=== PATIENT | female | born 1950 | race Caucasian/White ===

== ENCOUNTER 2018-11-01 05:37 | Day surgery (SDC) | payer OTHER ==
[~2018-11-01] VITALS: Ht 167.6 cm; Wt 114.1 kg
[2018-11-01 05:30] VITALS: BP 117/63; PULSE 61; RESP 16; Ht 167.6 cm; Wt 114.1 kg
--- NOTE | 2018-11-01 07:02 | PREAC ---
Date/Time of Note Date/Time of Note DATE: 11/01/18 TIME: 06:59 Anesthesia Eval and Record Evaluation Time Pre-Procedure Interview DATE: 11/01/18 TIME: 06:59 Age 68 Sex female NPO: 8 hrs Preoperative diagnosis A-Fibrillation Planned procedure ABBY, Cardioversion Past Medical History Past Medical History: Includes Cardio: Arrythmia (A-fib) Pulm: Sleep Apnea (uses C-PAP at home) GI: Obesity Surgery & Anesthesia Issues No known issue Meds Anticoagulation: No Beta Bebo within 24 hr: No Reason Beta Bebo not given: Pt. not on B-Bebo Meds reviewed: Yes Allergies Allergies Reviewed: Yes Labs/Studies Labs Reviewed: Reviewed by anesthesiologist Result Diagram: 11/01/18 0620 Laboratory Tests 11/01/18 06:20 test: N/A Studies: ECG (Afib, RBBB), CXR (n/a) Pre-procedure Exam Last vitals Vital Signs Date Temp Pulse Resp B/P (MAP) Pulse Ox O2 O2 Flow FiO2 Time Delivery Rate 11/01/18 97.8 61 16 117/63 91 Room Air 05:30 (81) Airway: Adequate mouth opening, Adequate thyromental dist Mallampati: Mallampati II Teeth: Normal Lung: Normal Heart: Normal ASA Physical Status ASA physical status: 3 Emergency: None Planned Anesthetic General/MAC: MAC Planned Pain Management Parenteral pain med Pre-operative Attestations Prior to commencing anesthesia and surgery, the patient was re-evaluated, there was verification of: *The patient's identity *The results of appropriate recent lab work and preoperative vital signs *The above evaluation not changing prior to induction *Anesthetic plan, risk benefits, alternative and complications discussed with patient/family; questions answered; patient/family understands, accepts and wishes to proceed. MARYANNE PONCE MD Nov 01, 2018 07:02
[2018-11-01] MEDS ORDERED: DULO60CA59 PO (07:15)
[2018-11-01] MEDS ORDERED: TRAZ150T65 PO (07:16)
[2018-11-01] MEDS ORDERED: PANT40TA3 PO (07:16)
[2018-11-01] MEDS ORDERED: SIMV20TA PO (07:17)
[2018-11-01] MEDS ORDERED: SOTA80TA PO (07:17)
[2018-11-01] MEDS ORDERED: GABA100C14 PO (07:19)
[2018-11-01] MEDS ORDERED: RIVA20TA5 PO (07:19)
[2018-11-01] MEDS ORDERED: ONDANSETRON 4 MG INJ IV PRN (07:30)
[2018-11-01] MEDS ORDERED: morphine (1 MG/ML) 10ML SYRINGE IV PRN (07:30)
[2018-11-01] MEDS ORDERED: METOCLOPRAMIDE 10 MG INJ IV PRN (07:30)
[2018-11-01] MEDS ORDERED: HYDROmorphONE 1 MG/5 ML IV SYRINGE IV PRN (07:30)
[2018-11-01] MEDS ORDERED: LABETALOL HCL 20MG INJ IV PRN (07:30)
[2018-11-01] MEDS ORDERED: FENTAnyl 50 MCG/ML VIAL IV PRN (07:30)
[2018-11-01] MEDS ORDERED: hydrALAzine 20 MG INJ IV PRN (07:30)
--- NOTE | 2018-11-01 07:46 | OPR ---
Date/Time of Note Date/Time of Note DATE: 11/01/18 TIME: 07:45 Operative Report Procedure Date: Nov 01, 2018 Preoperative Diagnosis afib Postoperative Diagnosis see below Operation/Procedure Performed DC cardioversion Surgeon see signature line And Rescue Fire Fighter Crash Fire none Anesthesia Type: other Estimated Blood Loss: none Transfusion none Specimen none Grafts/Implants none Complications none Procedure Description Procedure performed: DC cardioversion Wood Caulker: Duke Romano MD Indication: Atrial fibrillation Procedure in detail: Written informed consent was obtained after risks benefits and alternatives discussed with the patient's in detail. Risks including but not limited to risk of anesthesia related complication arrhythmia stroke WI pain burning etc. discussed with the patient in detail. Patient was brought in to the [facility] recovery and placed in supine position. Adequate anesthesia was obtained by the anesthesiologist. Pacer pads were placed on the chest wall and patient successfully cardioverted with 150 biphasic joules. Rhythm shows normal sinus rhythm/sinus bradycardia with frequent PAC EKG was ordered. Complications none Conclusion: Successful DC cardioversion DUKE ROMANO MD Nov 01, 2018 07:46
--- NOTE | 2018-11-01 07:58 | PAC ---
Date/Time of Note Date/Time of Note DATE: 11/01/18 TIME: 07:58 Post-Anesthesia Notes Post-Anesthesia Note Last documented vital signs Vital Signs Date Temp Pulse Resp B/P (MAP) Pulse Ox O2 O2 Flow FiO2 Time Delivery Rate 11/01/18 97.8 61 16 117/63 91 Room Air 07:30 (81) Activity: WNL Respiratory function: WNL Cardiovascular function: WNL Mental status: Baseline Pain reasonably controlled: Yes Hydration appropriate: Yes Nausea/Vomiting absent: Yes MARYANNE PONCE MD Nov 01, 2018 07:58
[2018-11-01] MEDS ORDERED: PROPOFOL 40 ML ONE (08:03)
[2018-11-01 08:39] VITALS: BP 117/57; PULSE 54; RESP 14
--- NOTE | 2018-11-01 14:02 | ECORPT ---
DATE OF SERVICE: 11/01/2018 PROCEDURE: Transesophageal echocardiogram. PREMEDICATION: A 68-year-old female with atrial fibrillation who is undergoing DC cardioversion. Tr ansesophageal echocardiogram is being done to rule out intracardiac thrombus prior to the cardioversi on. PROCEDURE IN DETAIL: Written informed consent was obtained after risks, benefits discussed with the patient in detail. The patient was brought in to prep and hold/recovery. Underwent anesthesia by an esthesiologist. Oral transesophageal probe was advanced through oropharynx into mid esophagus, multi ple views obtained. It was removed. COMPLICATIONS: None. FINDINGS: 1. Normal LV size and preserved LV systolic function, ejection fraction estimated about 50%. 2. The aortic valve is tricuspid mildly thickened with no significant stenosis or regurgitation. 3. Mitral valve mildly thickened with mild to moderate eccentric mitral insufficiency. 4. Tricuspid valve appeared to be normal with mild to moderate tricuspid insufficiency. 4. Left atrium appeared to be dilated. 5. Left atrial appendage was visualized with evidence of "smoke" but no obvious clot or thrombus was seen. 6. No pericardial effusion, masses, or thrombi seen. 7. Aortic root appeared to be normal in size. 8. No evidence of interatrial septal communication through color Doppler. CONCLUSION: No obvious thrombus was seen. We will proceed with DC cardioversion. Dictated By: DUKE POSADA/CHANG Conf#: [id number] DID#: [id number]
--- NOTE | 2018-11-01 21:49 | RADRPT ---
Vent Rate: 60 bpm RR Interval: 0 msec VA Interval: 0 msec QRS Duration: 140 msec QT Interval: 510 msec QTC Interval: 510 msec P-R-T [place]: 0 - -54 - -21 degrees Atrial flutter with 4:1 AV conduction Right bundle branch block Left anterior fascicular block Bifascicular block Abnormal ECG Electronically Signed By: Fabio Garsia [id number]
--- NOTE | 2018-11-01 21:50 | RADRPT ---
Vent Rate: 49 bpm RR Interval: 0 msec [place] Interval: 212 msec QRS Duration: 136 msec QT Interval: 514 msec QTC Interval: 464 msec P-R-T [place]: 61 - -51 - -48 degrees Marked sinus bradycardia with 1st degree AV block with premature supraventricular complexes Right bundle branch block Left anterior fascicular block Bifascicular block T wave abnormality, consider inferolateral ischemia Abnormal ECG Electronically Signed By: Fabio Garsia [id number]
--- NOTE | 2018-11-23 09:42 | HPN ---
Date/Time of Note Date/Time of Note DATE: 11/23/18 TIME: 09:42 Interval H&P Admission Note Pt. seen H&P reviewed: No system changes DUKE LEAVITT MD Nov 23, 2018 09:42
== END 2018-11-01 08:50 | disposition home or self-care (01) ==
LOC: SDS 05:37
PROVIDERS: ATTEND Internal Medicine Interventional Cardiology
DX: I45.2 Bifascicular block (principal); I48.91 Unspecified atrial fibrillation; I10 Essential (primary) hypertension; E66.9 Obesity, unspecified
CPT/HCPCS: 80053; 85025; 85610; 85730; 92960; 93005; 93312; 93320; 93325

== ENCOUNTER 2018-11-08 16:29 | Observation (INO) | payer OTHER ==
[~2018-11-08] VITALS: Ht 165.1 cm; Wt 112.5 kg
[~2018-11-08 16:29] MED LIST: DULO60CA59 PO; GABA100C14 PO; PANT40TA3 PO; RIVA20TA5 PO; SIMV20TA PO; SOTA80TA PO; TRAZ150T65 PO
[2018-11-08] MEDS ORDERED: ASPIRIN 325 MG TAB PO STA (18:55)
[2018-11-08] MEDS ORDERED: NITROGLYCERIN 2% 1 GM OINT PKT TD STA (18:55)
[2018-11-08] MEDS ORDERED: LORAZEPAM 2 MG INJ IV ONE (19:00)
[2018-11-08] MEDS ORDERED: DULO30CA47 PO (19:19)
[2018-11-08] MEDS ORDERED: MELO15TA30 PO (19:20)
--- NOTE | 2018-11-08 20:15 | ERD ---
ER Documentation Chief Complaint Chief Complaint Dr. Romano ref: mid-CP, SOB on exert worse x3-4d. p cardioversion last Radha HPI This patient was sent by Dr. Christian.of cardiology for admission. The patient had a cardiac ablation by him for atrial fibrillation. This was 1 week ago. She said 3 days after the procedure she started having exertional angina. When she walks she gets short of breath with chest pain has to stop walking and then the symptoms subside. This is a new symptom for her. No pain at rest. No recent fever cough or shortness of breath at rest. She called her printing manager and he said to come to the hospital to be admitted for stress test which was scheduled for tomorrow ROS All systems reviewed and are negative except as per history of present illness. Medications Home Meds Reported Medications Meloxicam* (Mobic*) 15 Mg Tablet, 15 MG PO DAILY, #30 TAB 11/08/18 Duloxetine Hcl* (Duloxetine Hcl*) 30 Mg Capsule.dr, 60 MG PO QHS, #30 CAP 11/08/18 Gabapentin* (Gabapentin*) 100 Mg Capsule, 200 MG PO QHS, #90 CAP 11/01/18 Rivaroxaban* (Xarelto*) 20 Mg Tablet, 20 MG PO WITH DINNER, TAB 11/01/18 Simvastatin* (Zocor*) 20 Mg Tablet, 20 MG PO QHS, #30 TAB 11/01/18 Sotalol Hcl* (Sotalol Hcl*) 80 Mg Tablet, 40 MG PO BID, TAB 11/01/18 Trazodone Hcl* (Trazodone Hcl*) 150 Mg Tablet, 300 MG PO QHS, #30 TAB 11/01/18 Pantoprazole* (Protonix*) 40 Mg Tablet.dr, 40 MG PO DAILY, TAB TAKE EVERY OTHER DAY 11/01/18 Discontinued Reported Medications Duloxetine Hcl* (Duloxetine Hcl*) 60 Mg Capsule.dr, 60 MG PO QHS, #30 CAP 11/01/18 Allergies Allergies: Coded Allergies: No Known Allergy (Unverified , 11/08/18) PMhx/Soc History of Surgery: Yes (GASTRIC SLEEVE, CHOLECYSTECTOMY, HYSTEROSCOPY, Cardiac ablation) Anesthesia Reaction: No Hx Neurological Disorder: No Hx Respiratory Disorders: Yes (SLEEP APNEA,) Hx Cardiac Disorders: Yes (CHF, A FIB,HTN) Hx Psychiatric Problems: No Hx Miscellaneous Medical Probl: Yes (OBESITY) Hx Alcohol Use: No Hx Substance Use: No Hx Tobacco Use: Yes Smoking Status: Current every day smoker FmHx Family History: No coronary disease Physical Exam Vitals Vital Signs Date Temp Pulse Resp B/P (MAP) Pulse Ox O2 O2 Flow FiO2 Time Delivery Rate 11/08/18 97.7 47 20 152/70 97 Room Air 19:17 (97) 11/08/18 97.7 55 20 152/70 97 16:43 (97) Physical Exam Const: Well-developed, well-nourished Head: Atraumatic, normocephalic Eyes: Normal Conjunctiva, PERRLA, EOMI, normal sclera, no nystagmus ENT: Normal External Ears, Nose and Mouth, moist mucus membranes. Neck: Full range of motion. No meningismus, no lymphadenopathy. Resp: Clear to auscultation bilaterally, no wheezing, rhonchi, rales Cardio: Regular rate and rhythm, no murmurs, S1 S2 present Abd: Soft, non tender x 4, non distended. Normal bowel sounds, no guarding or rebound, no pulsitile abdominal masses or bruits Skin: No petechiae or rashes, no ecchymosis , no maculopapular rash Back: No midline or flank tenderness Ext: No cyanosis, or edema, FROM x 4, normal inspection, neurovascularly intact x 4 Neur: Awake and alert, STR 5/5 x 4, sensation intact x 4, no focal findings, cerebellum intact Psych: Normal Mood and Affect Result Diagram: 11/08/18190411/08/181904 Results 24 hrs Laboratory Tests Test 11/08/18 19:05 White Blood Count 7.7 10^3/ul Red Blood Count 4.66 10^6/ul Hemoglobin 12.9 g/dl Hematocrit 41.4 % Mean Corpuscular Volume 88.8 fl Mean Corpuscular Hemoglobin 27.7 pg Mean Corpuscular Hemoglobin Concent 31.2 g/dl Red Cell Distribution Width 14.1 % Platelet Count 167 10^3/UL Mean Platelet Volume 10.3 fl Immature Granulocytes % 0.300 % Neutrophils % 54.2 % Lymphocytes % 35.4 % Monocytes % 8.4 % Eosinophils % 1.3 % Basophils % 0.4 % Nucleated Red Blood Cells % 0.0 /100WBC Immature Granulocytes # 0.020 10^3/ul Neutrophils # 4.2 10^3/ul Lymphocytes # 2.7 10^3/ul Monocytes # 0.7 10^3/ul Eosinophils # 0.1 10^3/ul Basophils # 0.0 10^3/ul Nucleated Red Blood Cells # 0.0 10^3/ul Prothrombin Time 14.2 Sec Prothrombin Time Ratio 1.1 INR International Normalized Ratio 1.09 Activated Partial Thromboplast Time 37.5 Sec Sodium Level 141 mmol/L Potassium Level 4.3 mmol/L Chloride Level 102 mmol/L Carbon Dioxide Level 32 mmol/L Anion Gap 7 Blood Urea Nitrogen 21 mg/dl Creatinine 0.82 mg/dl Est Glomerular Filtrat Rate mL/min > 60 mL/min Glucose Level 90 mg/dl Calcium Level 9.4 mg/dl Total Bilirubin 0.0 mg/dl Direct Bilirubin 0.00 mg/dl Indirect Bilirubin 0.0 mg/dl Aspartate Amino Transf (AST/SGOT) 20 IU/L Alanine Aminotransferase (ALT/SGPT) 18 IU/L Alkaline Phosphatase 127 IU/L Troponin I < 0.012 ng/ml Total Protein 7.4 g/dl Albumin 3.8 g/dl Globulin 3.60 g/dl Albumin/Globulin Ratio 1.05 Current Medications Medications Dose Sig/Walker Start Time Status Last (Trade) Ordered Route PRN Stop Time Admin Dose Reason Admin Aspirin 325 mg ONCE STAT 11/08/18 DC 11/08/18 (Aspirin) PO 18:55 19:10 11/08/18 18:56 1 inch ONCE STAT 11/08/18 DC 11/08/18 Nitroglycerin TD 18:55 19:10 11/08/18 18:56 (Nitroglyceri n 2% Oint) Lorazepam 0.5 mg ONCE ONCE 11/08/18 DC 11/08/18 (Ativan) IV 19:00 19:10 11/08/18 19:01 1 mg ONCE STAT 11/08/18 DC 11/08/18 Hydromorphone IV 22:28 22:32 HCl 11/08/18 22:29 (Dilaudid) Ondansetron 4 mg ONCE STAT 11/08/18 DC 11/08/18 HCl (Zofran IV 22:28 22:32 Inj) 11/08/18 22:29 Procedures/MDM Ordering MD: DEBORAH JULIEN DO Location: E/R Room/Bed: PROCEDURE: XR Chest. CLINICAL INDICATION: Chest pain TECHNIQUE: Single frontal view of the chest was obtained COMPARISON: None FINDINGS: The heart is enlarged. The thoracic aorta is calcified. There are mild increased interstitial changes throughout the lungs. There is no pleural effusion or pneumothorax. RPTAT: AA IMPRESSION: Moderate cardiomegaly. Mild pulmonary vascular congestion. Calcified aorta consistent with atherosclerotic disease. .Prosper Bailey MD, MD Date Time Electronically viewed and signed by .Prosper Bailey MD, MD on 11/08/2018 19:13 .S/ CC: DEBORAH JULIEN DO [id number] EKG: Rate/Rhythm: Sinus bradycardia bifascicular block QRS, ST, QT: NORMAL [place], QRS, QT] Impression: NORMAL EKG Cardiac Admit MDM: Patient's symptoms are concerning for cardiac cause will require inpatient workup and continuous monitoring. Further w/u for ischemia, arrhythmia, PE or dissection will be deferred to the inpatient team. Departure Diagnosis: Primary Impression: Chest pain Chest pain type: unspecified Qualified Codes: R07.9 - Chest pain, unspecified Condition: Stable DEBORAH JULIEN DO Nov 08, 2018 20:15
[2018-11-08] MEDS ORDERED: HYDROmorphONE 1 MG/ML SYG IV STA (22:28)
[2018-11-08] MEDS ORDERED: ONDANSETRON 4 MG INJ IV STA (22:28)
[2018-11-08] MEDS ORDERED: ACETAMINOPHEN 325 MG TAB PO PRN (23:30)
[2018-11-08] MEDS ORDERED: ONDANSETRON 4 MG INJ IV PRN (23:30)
[2018-11-08] MEDS ORDERED: SOD CHLORIDE 0.9% 1,000 ML IV SCH (23:45)
[2018-11-09] VITALS (9 sets, daily range): BP systolic 104–131; BP diastolic 46–61; PULSE 50–97; RESP 18–21; Ht 165.1 cm; Wt 112.5 kg
[2018-11-09] MEDS ORDERED: DOCUSATE SODIUM 100 MG CAP PO PRN
[2018-11-09] MEDS ORDERED: BISACODYL (EC) 5 MG TAB PO PRN
[2018-11-09] MEDS ORDERED: ACETAMINOPHEN 325 MG TAB PO PRN
[2018-11-09] MEDS ORDERED: morphine 2 MG INJ IV PRN
[2018-11-09] MEDS ORDERED: traZODone 50 MG TAB PO SCH
[2018-11-09] MEDS ORDERED: NACL 0.9% 3 ML SYG IV SCH
[2018-11-09] MEDS ORDERED: ONDANSETRON 4 MG INJ IV PRN
--- NOTE | 2018-11-09 00:45 | NUR ---
Nursing Note: Patient refuses to wear hospital gown. Purpose of gown explained to patient. Pt verbalizes understanding but still refuses. [place], fire extinguisher charger aware.
[2018-11-09] MEDS: NITROGLYCERIN (SL) 0.4 MG TAB SL PRN ×2 (00:51→01:31)
--- NOTE | 2018-11-09 05:33 | HP ---
Date/Time of Note Date/Time of Note DATE: 11/09/18 TIME: 05:22 Assessment/Plan VTE Prophylaxis Pharmacological prophylaxis: rivaroxaban Lines/Catheters IV Catheter Type (from Nrs): Peripheral IV Assessment/Plan Hospital Course This is a 68-year-old female being admitted to the telemetry floor for observation: #1 Chest pain and dyspnea with exertion: Secondary possible to possible mild CHF versus ACS. We will trend cardiac enzymes x3, first that was negative. Currently sinus bradycardia. Will consult cardiology Dr. romano for further management as patient is scheduled to have a stress test today will defer echocardiogram at the current time for possible echo with stress. She did have a some mild pulmonary congestion on x-ray we will give her a dose of Lasix. #2 sinus bradycardia: Patient is status post ablation for atrial fibrillation. Will hold sotalol at the current time. Monitor on telemetry. #3 history of atrial fibrillation: Currently on Xarelto, she is sinus bradycardia at the current time she status post ablation. Holding sotalol given her bradycardia. #4 anxiety: Continue home medications #5 hyperlipidemia: Continue statin #6 DVT GI prophylaxis: Xarelto, Protonix Further treatment strategy will be implemented as per the clinical course Result Diagram: 11/08/18 19011/08/18 190 Results 24hrs Laboratory Tests Test 11/08/18 19:05 11/09/18 00:18 White Blood Count 7.7 Red Blood Count 4.66 Hemoglobin 12.9 Hematocrit 41.4 Mean Corpuscular Volume 88.8 Mean Corpuscular Hemoglobin 27.7 L Mean Corpuscular Hemoglobin Concent 31.2 L Red Cell Distribution Width 14.1 Platelet Count 167 Mean Platelet Volume 10.3 Immature Granulocytes % 0.300 Neutrophils % 54.2 Lymphocytes % 35.4 Monocytes % 8.4 Eosinophils % 1.3 Basophils % 0.4 Nucleated Red Blood Cells % 0.0 Immature Granulocytes # 0.020 Neutrophils # 4.2 Lymphocytes # 2.7 Monocytes # 0.7 Eosinophils # 0.1 Basophils # 0.0 Nucleated Red Blood Cells # 0.0 Prothrombin Time 14.2 # Prothrombin Time Ratio 1.1 INR International Normalized Ratio 1.09 Activated Partial Thromboplast Time 37.5 H Sodium Level 141 Potassium Level 4.3 Chloride Level 102 Carbon Dioxide Level 32 H Anion Gap 7 Blood Urea Nitrogen 21 H Creatinine 0.82 Est Glomerular Filtrat Rate mL/min > 60 Glucose Level 90 Calcium Level 9.4 Total Bilirubin 0.0 L Direct Bilirubin 0.00 Indirect Bilirubin 0.0 Aspartate Amino Transf (AST/SGOT) 20 Alanine Aminotransferase (ALT/SGPT) 18 Alkaline Phosphatase 127 H Troponin I < 0.012 < 0.012 Total Protein 7.4 Albumin 3.8 Globulin 3.60 H Albumin/Globulin Ratio 1.05 Creatine Kinase 38 Creatine Kinase Index 2.0 Creatinine Kinase MB (Mass) 0.76 HPI/ROS Admit Date/Time Admit Date/Time Nov 08, 2018 at 23:10 Hx of Present Illness cc: chest pain sent in by mud worker This patient was sent by Dr. Romano of cardiology for admission. The patient had a cardiac ablation by him for atrial fibrillation 1 week ago. She said 3 days after the procedure she started having dyspnea at rest and on exertion as well as exertional angina. When she walks she gets short of breath with chest pain has to stop walking and then the symptoms subside. This is a new symptom for her. No pain at rest. No recent fever cough. She called her mud worker and he said to come to the hospital to be admitted for stress test which will be scheduled for Monday. allergies: nkda meds: see dec ROS Const: As per HPI Eyes : No pain discharge or redness or change in visual acuity ENT: No pain, sore throat, congestion, congestion, dysphagia or discharge Respiratory: As per HPI Cardiovascular: As per HPI GI : no change in appetite, abdominal pain, nausea, vomiting, diarrhea, constipation, or change in the color his stool Genitourinary: No dysuria, hematuria, flank pain , discharge or CVA tenderness Musculoskeletal: No joint pain, back pain, neck pain, restricted range of motion in neck or joints Skin: No rash, bruising or hives Neuro: No headache, dizziness, syncope, seizure, focal weakness Endocrine: No polyuria, polydipsia, temperature intolerance Psych: No hallucination, depression, anxiety or suicidal ideation PMH/Family/Social Past Medical History History of A. fib, anxiety, hyperlipidemia Medications Current Medications Ondansetron HCl (Zofran Inj) 4 mg ER BRIDGE PRN IV NAUSEA/VOMITING; Start 11/08/18 at 23:30; Stop 11/09/18 at 23:29 Acetaminophen (Tylenol Tab) 650 mg ER BRIDGE PRN PO .MILD PAIN 1-3 OR TEMP; Start 11/08/18 at 23:30; Stop 11/09/18 at 23:29 Duloxetine HCl (Cymbalta) 60 mg QHS PO ; Start 11/09/18 at 21:00 Gabapentin (Neurontin) 200 mg QHS PO ; Start 11/09/18 at 21:00 Pantoprazole (Protonix Tab) 40 mg DAILY@0600 PO ; Start 11/09/18 at 06:00 Rivaroxaban (Xarelto) 20 mg WITH DINNER PO ; Start 11/09/18 at 17:55 Trazodone HCl (Desyrel) 300 mg QHS PO Last administered on 11/09/18at 01:01; Admin Dose 300 MG; Start 11/09/18 at 00:00 Sodium Chloride 1,000 ml @ 80 mls/hr [id number] IV Last administered on 11/09/18at 01:01; Admin Dose 80 MLS/HR; Start 11/08/18 at 23:45 IV Flush (NS 3 ml) 3 ml PER PROTOCOL IV ; Start 11/09/18 at 00:00 Ondansetron HCl (Zofran Inj) 4 mg Q6H PRN IV NAUSEA/VOMITING; Start 11/09/18 at 00:00 Nitroglycerin (Nitroglycerin (Sl Tab) 0.4 Mg) 1 tab Q5M PRN SL .CHEST PAIN Last administered on 11/09/18at 01:31; Admin Dose 1 TAB; Start 11/09/18 at 00:00 Acetaminophen (Tylenol Tab) 650 mg Q6H PRN PO .PAIN 1-3 OR TEMP; Start 11/09/18 at 00:00 Morphine Sulfate (morphine) 2 mg Q4H PRN IV .PAIN 7-10; Start 11/09/18 at 00:00 Docusate Sodium (Colace) 100 mg Q12H PRN PO .CONSTIPATION; Start 11/09/18 at 00:00 Bisacodyl (Dulcolax) 5 mg DAILY PRN PO .CONSTIPATION; Start 11/09/18 at 00:00 Atorvastatin Calcium (Lipitor) 10 mg DAILY@21 PO ; Start 11/09/18 at 21:00 Coded Allergies: No Known Allergy (Unverified , 11/08/18) Past Surgical History Atrial fibrillation status post cardiac ablation 1 week ago x1, cholecystectomy, gastric sleeve Family History Significant Family History: no pertinent family hx Social History Alcohol Use: none Smoking Status: Current every day smoker (3 cigarettes a day) Drug Use: none Exam/Review of Systems Vital Signs Vitals Vital Signs Date Temp Pulse Resp B/P (MAP) Pulse Ox O2 O2 Flow FiO2 Time Delivery Rate 11/09/18 50 04:00 11/09/18 98.7 18 104/46 93 Room Air 3.0 04:00 (65) Exam Exam General: Currently lying in bed in no acute distress HEENT: Atraumatic, normocephalic. The pupils are equal, round and reactive. Extraocular motor are intact Neck: Supple with full range of motion. No rigidity or meningismus Chest: Nontender Lungs: Limited secondary to body habitus however possible slight wheezing noted Heart: Normal S1-S2, Regular rhythm and rate. Abdomen: Soft , nontender, nondistended , bowel sounds are present. No guarding no rebound tenderness , No masses or organomegaly. No costovertebral temporal angle mass Extremities: Normal to inspection, no edema no cyanosis Neurologic: Normal mental status, speech normal, cranial nerves II through XII are intact, motor and sensory are intact Additional Comments EKG: Rate/Rhythm: Sinus bradycardia bifascicular block QRS, ST, QT: NORMAL DC, QRS, QT] Impression: NORMAL EKG PROCEDURE: XR Chest. CLINICAL INDICATION: Chest pain TECHNIQUE: Single frontal view of the chest was obtained COMPARISON: None FINDINGS: The heart is enlarged. The thoracic aorta is calcified. There are mild increased interstitial changes throughout the lungs. There is no pleural effusion or pneumothorax. RPTAT: AA IMPRESSION: Moderate cardiomegaly. Mild pulmonary vascular congestion. Calcified aorta consistent with atherosclerotic disease. .Prosper Bailey MD, MD Date Time Electronically viewed and signed by .Prosper Bailey MD, on 11/08/2018 19:13 .S/ CC: DEBORAH JULIEN DO [id number] VITOR CORTES Nov 09, 2018 05:32
[2018-11-09] MEDS ORDERED: PANTOPRAZOLE (EC) 40 MG TAB PO SCH (06:00)
[2018-11-09] MEDS ORDERED: PENDING SANTYL ORDER FOR WOUND CARE XX PRN (06:00)
--- NOTE | 2018-11-09 07:00 | NUR ---
Nursing Note: Patient resting comfortably in stable condition. Pt a/o X4 and on 3.0 L NC. Sinus bradycardia on monitor. Will endorse to oncnoe RN. Addendum: 11/09/18 at 0705 by LUIS M WILKES RN Edit: This note is EOSS.
--- NOTE | 2018-11-09 07:36 | CONS ---
Assessment/Plan Assessment/Plan Assessment/Plan (Daily) 1. Chest pain rule out acute coronary syndrome 2. Dyspnea multifactorial: Probably mild congestive heart failure versus secondary pulmonary hypertension versus secondary to acute coronary syndrome vs others 3. Paroxysmal atrial fibrillation status post DC cardioversion a week ago 4. Obesity most likely obstructive sleep apnea 5. Abnormal EKG in sinus bradycardia Recommendations: Continue with the Xarelto given her recent DC cardioversion We will continue with the sotalol 40 mg p.o. twice daily for now Patient has been ruled out for myocardial infarction with serial cardiac enzyme. Plan for Lexiscan stress test today Status post a dose of IV Lasix DC planning on home medication if Lexiscan stress it does not show any significant reversible ischemia Thank you for his referral. We will continue to follow along with you DUKE LEAVITT MD [facility] Consultation Date/Type/Reason Admit Date/Time Nov 08, 2018 at 23:10 Date of Consultation: Nov 09, 2018 Type of Consult Cardiology Reason for Consultation chest pain Requesting Provider: VITOR CORTES Date/Time of Note DATE: 11/09/18 TIME: 07:28 Hx of Present Illness Interventional cardiology consultation note Chief complaint: Severe dyspnea on exertion and shortness of breath and chest pain Reason for consult: Chest pain History of present illness: Thank you for this referral. History was obtained from the patient discussion with her . Patient also very well-known to me from office visits. This is a pleasant 70-year-old female with history of likely sleep apnea and pulmonary hypertension, history of paroxysmal atrial fibrillation status post DC cardioversion last week who has had increasing shortness of breath and dyspnea on exertion with very limited activity since her cardioversion. She also describes as chest pressure and discomfort anteriorly up and very minimal activity. No resting pain denies any PND orthopnea to me. Allergies: No known drug allergies Medications were reviewed as per medical reconciliation sheet Family history: No reported history of coronary artery disease Social history: Non-smoker Past medical history: Morbid obesity, proximal atrial fibrillation flutter status post DC cardioversion a week ago, diverticulitis, pulmonary hypertension presumably secondary to her sleep apnea Review of system: Patient denies all others except for above-mentioned Past Medical History Home Meds Reported Medications Meloxicam* (Mobic*) 15 Mg Tablet, 15 MG PO DAILY, #30 TAB 11/08/18 Duloxetine Hcl* (Duloxetine Hcl*) 30 Mg Capsule.dr, 60 MG PO QHS, #30 CAP 11/08/18 Gabapentin* (Gabapentin*) 100 Mg Capsule, 200 MG PO QHS, #90 CAP 11/01/18 Rivaroxaban* (Xarelto*) 20 Mg Tablet, 20 MG PO WITH DINNER, TAB 11/01/18 Simvastatin* (Zocor*) 20 Mg Tablet, 20 MG PO QHS, #30 TAB 11/01/18 Sotalol Hcl* (Sotalol Hcl*) 80 Mg Tablet, 40 MG PO BID, TAB 11/01/18 Trazodone Hcl* (Trazodone Hcl*) 150 Mg Tablet, 300 MG PO QHS, #30 TAB 11/01/18 Pantoprazole* (Protonix*) 40 Mg Tablet.dr, 40 MG PO DAILY, TAB TAKE EVERY OTHER DAY 11/01/18 Discontinued Reported Medications Duloxetine Hcl* (Duloxetine Hcl*) 60 Mg Capsule.dr, 60 MG PO QHS, #30 CAP 11/01/18 Medications Current Medications Ondansetron HCl (Zofran Inj) 4 mg ER BRIDGE PRN IV NAUSEA/VOMITING; Start 11/08/18 at 23:30; Stop 11/09/18 at 23:29 Acetaminophen (Tylenol Tab) 650 mg ER BRIDGE PRN PO .MILD PAIN 1-3 OR TEMP; Start 11/08/18 at 23:30; Stop 11/09/18 at 23:29 Duloxetine HCl (Cymbalta) 60 mg QHS PO ; Start 11/09/18 at 21:00 Gabapentin (Neurontin) 200 mg QHS PO ; Start 11/09/18 at 21:00 Pantoprazole (Protonix Tab) 40 mg DAILY@0600 PO Last administered on 11/09/18at 06:12; Admin Dose 40 MG; Start 11/09/18 at 06:00 Rivaroxaban (Xarelto) 20 mg WITH DINNER PO ; Start 11/09/18 at 17:55 Trazodone HCl (Desyrel) 300 mg QHS PO Last administered on 11/09/18at 01:01; Admin Dose 300 MG; Start 11/09/18 at 00:00 Sodium Chloride 1,000 ml @ 80 mls/hr [id number] IV Last administered on 11/09/18at 01:01; Admin Dose 80 MLS/HR; Start 11/08/18 at 23:45 IV Flush (NS 3 ml) 3 ml PER PROTOCOL IV ; Start 11/09/18 at 00:00 Ondansetron HCl (Zofran Inj) 4 mg Q6H PRN IV NAUSEA/VOMITING; Start 11/09/18 at 00:00 Nitroglycerin (Nitroglycerin (Sl Tab) 0.4 Mg) 1 tab Q5M PRN SL .CHEST PAIN Last administered on 11/09/18at 01:31; Admin Dose 1 TAB; Start 11/09/18 at 00:00 Acetaminophen (Tylenol Tab) 650 mg Q6H PRN PO .PAIN 1-3 OR TEMP; Start 11/09/18 at 00:00 Morphine Sulfate (morphine) 2 mg Q4H PRN IV .PAIN 7-10; Start 11/09/18 at 00:00 Docusate Sodium (Colace) 100 mg Q12H PRN PO .CONSTIPATION; Start 11/09/18 at 00:00 Bisacodyl (Dulcolax) 5 mg DAILY PRN PO .CONSTIPATION; Start 11/09/18 at 00:00 Atorvastatin Calcium (Lipitor) 10 mg DAILY@21 PO ; Start 11/09/18 at 21:00 [facility]iscellaneous [facility] This patient burgos... PRN PRN XX WOUND CARE; Start 11/09/18 at 06:00 Furosemide (Lasix) 20 mg ONCE ONCE IV ; Start 11/09/18 at 08:00; Stop 11/09/18 at 08:01 Allergies: Coded Allergies: No Known Allergy (Unverified , 11/08/18) Social History Alcohol Use: none Smoking Status: Current every day smoker (3 cigarettes a day) Drug Use: none Exam/Review of Systems Vital Signs Vitals Vital Signs Date Temp Pulse Resp B/P (MAP) Pulse Ox O2 O2 Flow FiO2 Time Delivery Rate 11/09/18 50 04:00 11/09/18 98.7 18 104/46 93 Room Air 3.0 04:00 (65) Exam Exam General: Obese female in no acute distress HEENT: NC/AT. pupils are equal. round. NECK: NO JVD. no stridor. CV: Bradycardic. systolic murmur; no gallop or rubs. PULM: no wheezing or rhonchi. GI: SOFT, NT, ND, no rebound or guarding Extremity: trace B/L LE edema. no clubbing. neuro: awake and alert, OX3. Psych: calm and pleasant rectal: deferred EKG was personally reviewed which shows sinus bradycardia. Right bundle zev block. Left anterior fascicular block Chest x-ray shows: Moderate cardiomegaly. Mild pulmonary vascular congestion. Calcified aorta consistent with atherosclerotic disease. Labs Result Diagram: 11/09/18 0520 11/09/18 0520 Results 24hrs Laboratory Tests Test 11/08/18 19:05 11/09/18 00:18 11/09/18 05:20 White Blood Count 7.7 6.9 Red Blood Count 4.66 4.18 L Hemoglobin 12.9 11.6 L Hematocrit 41.4 37.3 Mean Corpuscular Volume 88.8 89.2 Mean Corpuscular Hemoglobin 27.7 L 27.8 L Mean Corpuscular Hemoglobin Concent 31.2 L 31.1 L Red Cell Distribution Width 14.1 14.1 Platelet Count 167 145 Mean Platelet Volume 10.3 10.8 H Immature Granulocytes % 0.300 0.300 Neutrophils % 54.2 54.0 Lymphocytes % 35.4 35.2 Monocytes % 8.4 8.7 Eosinophils % 1.3 1.7 Basophils % 0.4 0.1 Nucleated Red Blood Cells % 0.0 0.0 Immature Granulocytes # 0.020 0.020 Neutrophils # 4.2 3.7 Lymphocytes # 2.7 2.4 Monocytes # 0.7 0.6 Eosinophils # 0.1 0.1 Basophils # 0.0 0.0 Nucleated Red Blood Cells # 0.0 0.0 Prothrombin Time 14.2 # Prothrombin Time Ratio 1.1 INR International Normalized Ratio 1.09 Activated Partial Thromboplast Time 37.5 H Sodium Level 141 144 Potassium Level 4.3 4.3 Chloride Level 102 104 Carbon Dioxide Level 32 H 33 H Anion Gap 7 7 Blood Urea Nitrogen 21 H 19 Creatinine 0.82 0.75 Est Glomerular Filtrat Rate mL/min > 60 > 60 Glucose Level 90 89 Calcium Level 9.4 9.0 Total Bilirubin 0.0 L 0.0 L Direct Bilirubin 0.00 0.00 Indirect Bilirubin 0.0 0.0 Aspartate Amino Transf (AST/SGOT) 20 23 Alanine Aminotransferase (ALT/SGPT) 18 21 Alkaline Phosphatase 127 H 96 Troponin I < 0.012 < 0.012 0.018 Total Protein 7.4 6.4 # Albumin 3.8 3.2 L Globulin 3.60 H 3.20 Albumin/Globulin Ratio 1.05 1.00 Creatine Kinase 38 32 Creatine Kinase Index 2.0 2.3 Creatinine Kinase MB (Mass) 0.76 0.72 Magnesium Level 1.8 Triglycerides Level 66 Cholesterol Level 130 LDL Cholesterol, Calculated 79 HDL Cholesterol 38 Cholesterol/HDL Ratio 3.4 Thyroid Stimulating Hormone (TSH) 2.480 DUKE LEAVITT MD Nov 09, 2018 07:36
[2018-11-09] MEDS ORDERED: FUROSEMIDE 20 MG INJ IV ONE ×2 (08:00→09:00)
[2018-11-09] MEDS ORDERED: REGADENOSON 0.4 MG/5 ML SYG ONE (08:30)
[2018-11-09] MEDS ORDERED: SOTALOL 80 MG TAB PO SCH (09:00)
[2018-11-09] MEDS ORDERED: morphine 4 MG/ML VIAL IV PRN (10:00)
--- NOTE | 2018-11-09 10:45 | NUR ---
Wound Care Consult: This patient was sent by Dr. Romano of cardiology for admission. The patient had a cardiac ablation by him for atrial fibrillation 1 week ago. She said 3 days after the procedure she started having dyspnea at rest and on exertion as well as exertional angina. When she walks she gets short of breath with chest pain has to stop walking and then the symptoms subside. This is a new symptom for her. Wound care team consulted for wounds present on admission Left inner foot clean dn intact Bilateral heels clean and intact Sacrococcyx clean and intact Encourage to reposition per department protocol WOCN coordinated assessment and treatment recommendation with unit RN Idris Sears, RN MSN WOCN CM
--- NOTE | 2018-11-09 11:48 | PDOCDIS ---
Discharge Instructions CONDITION [id number] Patient Condition: [id number] Stable HOME CARE INSTRUCTIONS: [id number] Diet Instructions: [id number] Reduced Sodium FOLLOW UP/APPOINTMENTS Follow-up Plan Follow-up with Dr. Romano in 2 weeks [id number] [address] Office KRZYSZTOF LIMA NP Nov 09, 2018 11:48
--- NOTE | 2018-11-09 12:07 | DS ---
Date/Time of Note Date/Time of Note DATE: 11/09/18 TIME: 11:59 Discharge Summary Admission/Discharge Info Admit Date/Time Nov 08, 2018 at 23:10 Discharge Date/Time Discharge Diagnosis 1. Chest pain rule out acute coronary syndrome 2. Paroxysmal atrial fibrillation status post DC cardioversion a week ago 4. Hyperlipidemia 5. Obesity Patient Condition: Stable Consults ,clinical nurse occupational medicine Procedures PROCEDURE: Lexiscan myocardial perfusion study IMPRESSION: 1. No evidence of stress-induced ischemia. 2. No wall motion abnormalities. 3. The left ventricle ejection fraction at stress is 65%. A call report was made to Dr. Romano at 09:55 a.m. on November 09, 2018. 11/08/2017. Chest x-ray. IMPRESSION: Moderate cardiomegaly. Mild pulmonary vascular congestion. Calcified aorta consistent with atherosclerotic disease. Hospital Course 68-year-old morbidly obese female with a medical history of paroxysmal atrial fibrillation, status post recent cardioversion, hyperlipidemia, admitted for chest pain. Patient was ruled out for myocardial infarction with serial cardiac enzymes, EKG. She also had a Lexiscan stress test which was negative. Patient was being followed by her clinical nurse occupational medicine. She was continued on home medication for underlying comorbidities. Patient with no further chest pain. Labs and vital signs stable. Patient was cleared for outpatient follow-up per cardiology standpoint. Approximately 60 m spent on coordinating the discharge on this patient. Patient was seen in collaboration with Dr. Contreras. Home Meds Reported Medications Meloxicam* (Mobic*) 15 Mg Tablet, 15 MG PO DAILY, #30 TAB 11/08/18 Duloxetine Hcl* (Duloxetine Hcl*) 30 Mg Capsule., 60 MG PO QHS, #30 CAP 11/08/18 Gabapentin* (Gabapentin*) 100 Mg Capsule, 200 MG PO QHS, #90 CAP 11/01/18 Rivaroxaban* (Xarelto*) 20 Mg Tablet, 20 MG PO WITH DINNER, TAB 11/01/18 Simvastatin* (Zocor*) 20 Mg Tablet, 20 MG PO QHS, #30 TAB 11/01/18 Sotalol Hcl* (Sotalol Hcl*) 80 Mg Tablet, 40 MG PO BID, TAB 11/01/18 Trazodone Hcl* (Trazodone Hcl*) 150 Mg Tablet, 300 MG PO QHS, #30 TAB 11/01/18 Pantoprazole* (Protonix*) 40 Mg Tablet.dr, 40 MG PO DAILY, TAB TAKE EVERY OTHER DAY 11/01/18 Discontinued Reported Medications Duloxetine Hcl* (Duloxetine Hcl*) 60 Mg Capsule.dr, 60 MG PO QHS, #30 CAP 11/01/18 Follow-up Plan Follow-up with Dr. Romano in 2 weeks [id number] [facility] [address] [place] [id number] Office Primary Care Provider Manoj Morris MD Pending Labs Laboratory Tests Test 11/08/18 19:05 11/09/18 00:18 11/09/18 05:20 White Blood Count 7.7 6.9 10^3/ul (4.8-10.8) 10^3/ul (4.8-10.8) Red Blood Count 4.66 4.18 10^6/ul (4.20-5.40) 10^6/ul (4.20-5.40 ) Hemoglobin 12.9 11.6 g/dl (12.0-16.0) g/dl (12.0-16.0) Hematocrit 41.4 % (37.0-47.0) 37.3 % (37.0-47.0) Mean Corpuscular 88.8 89.2 Volume fl (82.0-101.0) fl (82.0-101.0) Mean Corpuscular 27.7 pg (29.0-33.0) 27.8 Hemoglobin pg (29.0-33.0) Mean Corpuscular 31.2 31.1 Hemoglobin Concent g/dl (32.0-37.0) g/dl (32.0-37.0) Red Cell 14.1 % (11.5-14.5) 14.1 % (11.5-14.5) Distribution Width Platelet Count 167 145 10^3/UL (140-415) 10^3/UL (140-415) Mean Platelet 10.3 fl (7.4-10.4) 10.8 fl (7.4-10.4) Volume Immature 0.300 0.300 Granulocytes % % (0.001-0.429) % (0.001-0.429) Neutrophils % 54.2 % (39.0-77.0) 54.0 % (39.0-77.0) Lymphocytes % 35.4 % (15.0-51.0) 35.2 % (15.0-51.0) Monocytes % 8.4 % (0.0-11.0) 8.7 % (0.0-11.0) Eosinophils % 1.3 % (0.0-7.0) 1.7 % (0.0-7.0) Basophils % 0.4 % (0.0-2.0) 0.1 % (0.0-2.0) Nucleated Red Blood 0.0 0.0 Cells % /100WBC (0.0-0.0) /100WBC (0.0-0.0) Immature 0.020 0.020 Granulocytes # 10^3/ul (0.0-0.031) 10^3/ul (0.0-0.031 ) Neutrophils # 4.2 3.7 10^3/ul (1.6-7.5) 10^3/ul (1.6-7.5) Lymphocytes # 2.7 2.4 10^3/ul (0.8-2.9) 10^3/ul (0.8-2.9) Monocytes # 0.7 0.6 10^3/ul (0.3-0.9) 10^3/ul (0.3-0.9) Eosinophils # 0.1 0.1 10^3/ul (0.0-0.5) 10^3/ul (0.0-0.5) Basophils # 0.0 0.0 10^3/ul (0.0-0.1) 10^3/ul (0.0-0.1) Nucleated Red Blood 0.0 0.0 Cells # 10^3/ul (0.0-0.0) 10^3/ul (0.0-0.0) Prothrombin Time 14.2 Sec (11.9-14.9) Prothrombin Time 1.1 Ratio INR International 1.09 Normalized Ratio Activated 37.5 Partial Thromboplas Sec (23.0-35.0) t Time Sodium Level 141 144 mmol/L (135-144) mmol/L (135-144) Potassium Level 4.3 4.3 mmol/L (3.5-5.1) mmol/L (3.5-5.1) Chloride Level 102 mmol/L (97-110) 104 mmol/L (97-110) Carbon Dioxide 32 mmol/L (21-31) 33 mmol/L (21-31) Level Anion Gap 7 (5-13) 7 (5-13) Blood Urea 21 mg/dl (7-20) 19 mg/dl (7-20) Nitrogen Creatinine 0.82 0.75 mg/dl (0.44-1.00) mg/dl (0.44-1.00) Est Glomerular > 60 mL/min (>60) > 60 mL/min (>60) Filtrat Rate mL/min Glucose Level 90 mg/dl (70-220) 89 mg/dl (70-220) Calcium Level 9.4 9.0 mg/dl (8.4-10.2) mg/dl (8.4-10.2) Total Bilirubin 0.0 mg/dl (0.2-1.3) 0.0 mg/dl (0.2-1.3) Direct Bilirubin 0.00 0.00 mg/dl (0.00-0.20) mg/dl (0.00-0.20) Indirect Bilirubin 0.0 mg/dl (0-1.1) 0.0 mg/dl (0-1.1) Aspartate Amino 20 IU/L (15-46) 23 IU/L (15-46) Transf (AST/SGOT) Alanine 18 IU/L (13-69) 21 IU/L (13-69) Aminotransferase (A LT/SGPT) Alkaline 127 IU/L (42-121) 96 IU/L (42-121) Phosphatase Troponin I < 0.012 < 0.012 0.018 ng/ml (0.000-0.120) ng/ml (0.000-0.120 ng/ml (0.000-0.120 ) ) Total Protein 7.4 g/dl (6.1-8.1) 6.4 g/dl (6.1-8.1) Albumin 3.8 g/dl (3.3-4.9) 3.2 g/dl (3.3-4.9) Globulin 3.60 g/dl (1.3-3.2) 3.20 g/dl (1.3-3.2) Albumin/Globulin 1.05 1.00 Ratio Creatine Kinase 38 IU/L (23-200) 32 IU/L (23-200) Creatine Kinase 2.0 2.3 Index Creatinine Kinase 0.76 0.72 MB (Mass) ng/ml (0.0-2.4) ng/ml (0.0-2.4) Hemoglobin A1c 5.5 % (0-5.9) Magnesium Level 1.8 mg/dl (1.7-2.5) Triglycerides 66 mg/dl (0-149) Level Cholesterol Level 130 mg/dl (100-200) LDL Cholesterol, 79 mg/dl Calculated HDL Cholesterol 38 mg/dl (35-98) Cholesterol/HDL 3.4 RATIO Ratio Thyroid Stimulating 2.480 Hormone (TSH) MIU/L (0.465-4.680 ) KRZYSZTOF LIMA NP Nov 09, 2018 12:07
[2018-11-09] MEDS ORDERED: RIVAROXABAN 20 MG TABLET PO SCH (17:55)
[2018-11-09] MEDS ORDERED: ATORVASTATIN 10 MG TAB PO SCH (21:00)
[2018-11-09] MEDS ORDERED: DULOXETINE 30 MG CAP DR PO SCH (21:00)
[2018-11-09] MEDS ORDERED: NON-FORMULARY/PATIENT OWN MED (Simvastatin* (Zocor*) 20 MG) PO SCH (21:00)
[2018-11-09] MEDS ORDERED: GABAPENTIN 100 MG CAP PO SCH (21:00)
== END 2018-11-09 14:20 | disposition home or self-care (01) ==
LOC: E/R 16:29 → INTOOBSV 23:10 → TEL 23:10
PROVIDERS: ADMIT Family Medicine; ATTEND Family Medicine
DX: R07.9 Chest pain, unspecified (principal); I48.0 Paroxysmal atrial fibrillation; E78.5 Hyperlipidemia, unspecified; E66.9 Obesity, unspecified; Z68.41 Body mass index [BMI] 40.0-44.9, adult; I51.7 Cardiomegaly; I82.409 Acute embolism and thrombosis of unspecified deep veins of unspecified lower extremity; R94.31 Abnormal electrocardiogram [ECG] [EKG]; F41.9 Anxiety disorder, unspecified; R00.1 Bradycardia, unspecified; Z79.01 Long term (current) use of anticoagulants
CPT/HCPCS: 36415; 71045; 78452; 80053; 80061; 82550; 82553; 83036; 83735; 84443; 84484; 85025; 85610; 85730; 93005; 93017; 96374; 96375; 99217; 99285; A9500; A9505; J1170; J1940; J2060; J2270; J2405; J2785; J7030; G0378